=== PATIENT | male | born 1985 | race Caucasian/White ===

== ENCOUNTER 2023-09-13 15:34 | Emergency (ER) | payer OTHER, SELFPAY ==
[2023-09-13] MEDS ORDERED: Ketorolac Tromethamine 10 MG TAB ONE (16:18)
== END 2023-09-13 18:30 | disposition home or self-care (01) ==
LOC: MADERS 15:34
DX: S83.92XA Sprain of unspecified site of left knee, initial encounter (principal); F17.210 Nicotine dependence, cigarettes, uncomplicated; W18.00XA Striking against unspecified object with subsequent fall, initial encounter